=== PATIENT | female | born 1950 | race Caucasian/White ===

== ENCOUNTER 2020-06-14 14:09 | Emergency (ER) | payer MEDICARE, SELFPAY ==
--- NOTE | ~2020-06-14 | XR_ITS ---
EXAMINATION: XR chest 2V DATE: 06/14/2020 14:46 INDICATION: Shortness of breath and fatigue TECHNIQUE: PA and lateral views of the chest are obtained. COMPARISON: None available FINDINGS: The lungs are free of acute opacities. There is no pleural effusion or pneumothorax. The ca rdiomediastinal silhouette is normal. There is mild thoracic spondylosis. There is elevation of the r ight hemidiaphragm. IMPRESSION: 1. No acute cardiopulmonary abnormality. Reviewed, dictated and finalized at location A.
--- NOTE | 2020-06-14 14:25 | ED.URI ---
HPI - URI/Sore Throat General Chief Complaint: Upper Respiratory Infection Stated Complaint: shortness of breath/fatigue/sweating Source: patient Mode of arrival: ambulatory Limitations: no limitations History of Present Illness HPI Narrative: Radha Dodson is a 69 yo female with a PMH of depression, HTN and high cholesterol is a COVID+ patient who was diagnosed on 05/17 and has been at slowly recovering - has albuterol inhaler, drinking fluids but is concerned about on-going sob. No fever since 4-5 days after dx. Sent here from primary care to be checked out Related Data Home Medications Medication Instructions Recorded Confirmed Myrbetriq 06/14/20 alprazolam 0.25 mg PO BID PRN 06/14/20 06/14/20 clonidine HCl 06/14/20 escitalopram oxalate 10 mg PO DAILY 06/14/20 06/14/20 estradiol 06/14/20 gemfibrozil 600 mg PO BID 06/14/20 06/14/20 meloxicam 15 mg PO DAILY 06/14/20 06/14/20 metoprolol tartrate 50 mg PO Q12H 06/14/20 06/14/20 omeprazole 20 mg PO DAILY 06/14/20 06/14/20 valsartan-hydrochlorothiazide 1 tablet PO DAILY 06/14/20 06/14/20 Allergies Allergy/AdvReac Type Severity Reaction Status Date / Time amlodipine Allergy Swelling Verified 06/14/20 15:17 diltiazem Allergy Swelling Verified 06/14/20 15:17 Corticosteroids AdvReac Unknown Verified 06/14/20 15:17 (Glucocorticoids) sertraline [From Zoloft] AdvReac Nausea and Verified 06/14/20 15:17 Vomiting STATINS AdvReac Unknown Uncoded 06/14/20 15:17 Review of Systems Review of Systems: Narrative: CONSTITUTIONAL: Denies fever, chills, sweats. EYES: Denies visual changes, redness, discharge. ENT: Denies rhinorrhea, congestion, sore throat, otalgia. CARDIOVASCULAR: Denies chest pain, palpitations, edema. RESPIRATORY: Denies dyspnea, wheezing, cough has sob GASTROINTESTINAL: Denies abdominal pain, nausea, vomiting, diarrhea. GENITOURINARY: Denies dysuria, hematuria, abnormal discharge SKIN: Denies rash or itching. NEUROLOGIC: Denies numbness, or focal weakness. PSYCHIATRIC: Denies anxiety or depression. [facility] Past Medical History Medical History (Updated 06/14/20 @ 15:10 by Trinh Garcia CNP) Depression High cholesterol HTN (hypertension) Family History Family History Other Heart disease Hypertension Social History Social History Smoking status: Never smoker Alcohol intake: current Comments At time of signature, I agree with nursing past medical, surgical, social and family history. There is no relevant family history pertinent to the presenting complaint. Exam Narrative: Exam Narrative: GENERAL: This is a well-nourished, well-developed patient, in mild distress. HEAD: normocephalic, atraumatic. EYES: Sclera clear/white. Vision is grossly intact. EARS: External ears normal, auditory canals clear and without drainage, TMs normal without perforation. Hearing grossly intact. NOSE: External nose normal without nasal discharge, nares without redness, no rhinorrhea. THROAT: Mucous membranes moist, posterior pharynx NECK: Neck supple, CARDIOVASCULAR: Regular rate and rhythm without murmurs, gallops, or rubs. RESPIRATORY: Clear to auscultation. Breath sounds equal bilaterally. No wheezes, rales, or rhonchi. GASTROINTESTINAL: Abdomen soft, non-tender, SKIN: warm, intact with no suspicious lesions or rash, good texture and turgor. NEURO: awake, alert, and oriented to person, place and time. There were no obvious focal neurologic abnormalities. Steady gait EXTREMITIES: Normal range of motion. BACK: Nontender without deformity Course Course Emergency Course: Continues to improve from initial COVID diagnosis still complaining of shortness of breath and will be given albuterol inhaler should follow-up with her primary care physician for blood work if shortness of breath continues Chest x-ray was read as a normal chest x-
[2020-06-14 14:30] VITALS: BP 188/73; PULSE 84; RESP 22; TEMP 36.4; O2SAT 97
== END 2020-06-14 15:26 | disposition home or self-care (01) ==
PROVIDERS: Emergency Provider Nurse Practitioner; PCP Nurse Practitioner Adult Health
DX: U07.1 COVID-19 (principal); R06.00 Dyspnea, unspecified; E78.00 Pure hypercholesterolemia, unspecified; I10 Essential (primary) hypertension; F32.9 Major depressive disorder, single episode, unspecified
CPT/HCPCS: 71046; 99213; G0463